=== PATIENT | male | born 1990 | race Two or more races ===

== ENCOUNTER 2018-12-21 09:32 | Emergency (ER) | payer MEDICAID ==
[~2018-12-21] VITALS: Ht 152.4 cm; Wt 36.3 kg
[2018-12-21 09:59] VITALS: BP 139/80
[2018-12-21] MEDS ORDERED: LIDOCAINE 2% (LOCAL ANESTH.) PF 5ml SDV ONE (10:15)
[2018-12-21] MEDS ORDERED: GASTROGRAFIN 30 ML SOL ONE (10:38)
== END 2018-12-21 16:15 | disposition home or self-care (01) ==
LOC: EDBD 09:32 → ER 09:32
DX: K94.23 Gastrostomy malfunction (principal); G80.9 Cerebral palsy, unspecified; K59.01 Slow transit constipation
CPT/HCPCS: 43762; 74021; 99284; J2001; Q9963